=== PATIENT | male | born 1970 | race Caucasian/White ===

== ENCOUNTER → 2019-10-24 | Day surgery (SDC) | payer BC ==
[~2019-10-24] VITALS: Ht 182.9 cm; Wt 122.5 kg
[~2019-10-24] MED LIST: ACCU-CHEK COMFORT CURVE STRIP VI ONE; AMLO5TAB15 PO; ATOR20TA50 PO; B-COTAB76 PO; BACL10TA PO; BUPIVACAINE W/ EPINEPH 0.25% INJ 50ML MDV ONE; CANA300T PO; CHOL400T21 PO; CINN1CAP2 PO; COEN100C37 PO; DULO60CA PO; FOLI1TAB6 PO; GABA-339 PO; GLIM4TAB42 PO; GLUC1CAP12 PO; GLUC1TAB35 PO; HYDROmorphone HCL 2 MG/ML VL IV PRN; LIDOCAINE W/ EPINEPHRINE 2% INJ 20ML VIAL ONE; MAGN400C3 PO; METF-372 PO; METH2.5T PO; MIDAZOLAM HCL 1MG/1ML-2 ML VIAL ONE; ONDANSETRON HCL 4 MG/2 ML VIAL IV PRN; ONDANSETRON HCL 4 MG/2 ML VIAL ONE; OYST500T29 PO; PIO30T PO; PRAS1CAP3 PO; PROPOFOL 10 MG/ML 20 ML IV ONE; SEMA2INJ SC; SODIUM CHLORIDE LOCK 10 ML ONE; VANCOMYCIN HCL 1000 MG VL ONE; ZINC66TA PO; [UNRECOGNIZED DRUG - CODE] PO; ceFAZolin 1GM/50ML 100 ML IV ONE; fentaNYL CITRATE 100 MCG/2 ML VL ONE
[2019-10-24 13:44] VITALS: BP 121/76
== END | disposition home or self-care (01) ==
LOC: SUR 09:33
PROVIDERS: ATTEND Anesthesiology Pain Medicine
DX: M48.062 Spinal stenosis, lumbar region with neurogenic claudication (principal); E66.01 Morbid (severe) obesity due to excess calories; I10 Essential (primary) hypertension; G89.29 Other chronic pain; F32.9 Major depressive disorder, single episode, unspecified; E11.42 Type 2 diabetes mellitus with diabetic polyneuropathy; Z88.5 Allergy status to narcotic agent; Z68.36 Body mass index [BMI] 36.0-36.9, adult; Z86.73 Personal history of transient ischemic attack (TIA), and cerebral infarction without residual deficits; Z79.899 Other long term (current) drug therapy; Z98.890 Other specified postprocedural states; Z20.828 Contact with and (suspected) exposure to other viral communicable diseases
CPT/HCPCS: 22869; 22870; 72100; 82962; C1821; J0690; J2250; J2405; J2704; J3010; J3370; U0003; 76000